=== PATIENT | male | born 1985 | race Hispanic/Latino ===

== ENCOUNTER 2019-12-12 21:52 | Emergency (ER) | payer SELFPAY ==
[2019-12-12] MEDS ORDERED: NA CHLORIDE 0.9% 1,000 ML ONE (22:57)
[2019-12-12 23:21] LABS: Absolute Lymphocytes (CBC) 2.7 K/uL (0.7-4.9); Basophils % 0.8 % (0-1.3); Hematocrit 45.9 % (39.6-49.0); Lymphocytes % 42.1 % (15.3-44.8); MPV 9.9 fL (7.6-11.3); RBC Red Blood Cell Count 5.41 M/uL (4.33-5.43)
[2019-12-12 23:38] LABS: ALT/SGPT 51 U/L (12-78); Albumin 3.9 g/dL (3.4-5.0); Alkaline Phosphatase 75 U/L (45-117); BUN Blood Urea Nitrogen 18 mg/dL (7-18); Bicarbonate 24 mmol/L (21-32); Bilirubin Direct < 0.1 mg/dL (0-0.2); Bilirubin Total 0.4 mg/dL (0.2-1.0); Glucose Level 97 mg/dL (74-106); Lipase 218 U/L (73-393); Potassium 3.8 mmol/L (3.5-5.1); Protein, Total 8.1 g/dL (6.4-8.2); Sodium Level 142 mmol/L (136-145)
[2019-12-12 23:39] LABS: AST/SGOT 24 U/L (15-37)
--- NOTE | 2019-12-13 01:10 | ER ---
Nurse's Notes [facility] Name: Benjy Polk Age: 34 yrs Sex: Male : 1985 Arrival Date: 12/12/2019 Time: 21:56 Bed 13 Private MD: Diagnosis: Gastritis, unspecified, without bleeding Presentation: 12/11 22:06 Chief complaint: Patient states: Epigastric pain for 2 hours with nausea and diarrhea. ll1 Coronavirus screen: Proceed with normal triage. Patient denies a cough. Patient denies shortness of breath or difficulty breathing. Patient denies measured and/or subjective temperature greater than 100.4F prior to today's visit. Patient denies travel on a cruise ship or to a country the [facility] currently lists as an affected area. Patient denies contact with known and/or suspected case of COVID-19. Ebola Screen: Patient denies travel to an Ebola-affected area in the 21 days before illness onset. Initial Sepsis Screen: Does the patient meet any 2 criteria? No. Patient's initial sepsis screen is negative. Does the patient have a suspected source of infection? No. Patient's initial sepsis screen is negative. Risk Assessment: Do you want to hurt yourself or someone else? Patient reports no desire to harm self or others. Onset of symptoms was December 12, 2019. 22:06 Method Of Arrival: Ambulatory ll1 22:06 Acuity: MIKE 3 ll1 Historical: - Allergies: 22:08 No Known Allergies; ll1 - PSHx: 22:08 None; ll1 - Immunization history:: Adult Immunizations up to date. - Social history:: Smoking status: Patient denies any tobacco usage or history of. Patient uses alcohol, only on a social basis. Patient/guardian denies using street drugs. Screenin:42 Abuse screen: Denies threats or abuse. Denies injuries from another. Nutritional sg screening: No deficits noted. Tuberculosis screening: No symptoms or risk factors identified. Never had TB. Fall Risk None identified. Assessment: 22:50 General: Appears in no apparent distress. well groomed, well developed, well nourished, sg Behavior is calm, cooperative, appropriate for age. Pain: Complains of pain in abdomen Quality of pain is described as aching. Neuro: Level of Consciousness is awake, alert, obeys commands, Oriented to person, place, time, Speech is normal, Facial symmetry appears normal. Cardiovascular: Capillary refill is brisk in bilateral fingers Patient's skin is warm and dry. Chest pain is denied. Respiratory: Airway is patent Respiratory effort is even, unlabored, Respiratory pattern is regular, symmetrical. GI: Bowel sounds present X 4 quads. Abd is soft X 4 quads Abdomen is tender to palpation in right lower quadrant. GI: Reports nausea. : No signs and/or symptoms were reported regarding the genitourinary system. EENT: No signs and/or symptoms were reported regarding the EENT system. Derm: Skin is pink, warm \T\ dry. Musculoskeletal: Circulation, motion, and sensation intact. Range of motion: intact in all extremities. 12/12 01:14 Reassessment: Patient appears in no apparent distress at this time. Patient and/or vc family updated on plan of care and expected duration. Pain level reassessed. Patient is alert, oriented x 3, equal unlabored respirations, skin warm/dry/pink. Patient has no concerns or needs at this time. Vital Signs: 12/11 22:06 BP 138 / 86; Pulse 88; Resp 17; Temp 98.5; Pulse Ox 96% ; Pain 5/10; ll1 12/12 00:57 BP 143 / 107; Pulse 82; Resp 18; Pulse Ox 97% on R/A; mg2 ED Course: 12/11 21:56 Patient arrived in ED. ds1 22:07 Triage completed. ll1 22:08 Arm band placed on Patient notified of wait time. ll1 22:17 Klever Duran PA is PHCP. m 22:17 Star Sanchez MD is Attending Physician. jmm 22:33 Radiology exam delayed due to lab results not completed at this time. (BUN/Creatinine). vm2 22:49 Alfonso Juarez, MICHELLE is Primary Nurse. sg 22:50 No provider procedures requiring assistance completed. Inserted saline lock: 20 gauge mg2 in left antecubital area, using aseptic technique. Blood collected. 12/12 00:17 CT Abd/Pelvis - IV Contrast Only In Process Unspecified. EDMS 00:58 Patient has correct armband on for positive identification. mg2 01:29 IV discontinued, intact, bleeding controlled, No redness/swelling at site. Pressure vc dressing applied. Administered Medications: 12/11 22:50 Drug: NS 0.9% 1000 ml Route: IV; Rate: 1 bolus; Site: left antecubital; sg 12/12 00:48 Follow up: Response: No adverse reaction; IV Status: Completed infusion; IV Intake: mg2 1000ml Intake: 00:48 IV: 1000ml; Total: 1000ml. mg2 Outcome: 01:09 Discharge ordered by . tw4 01:29 Discharged to home ambulatory. vc 01:29 Condition: good 01:29 Discharge instructions given to patient, Instructed on discharge instructions, follow up and referral plans. medication usage, Demonstrated understanding of instructions, follow-up care, medications, Prescriptions given X 2. 01:31 Patient left the ED. vc Signatures: Dispatcher [employer] EDMS Alfonso Juarez, RN RN sg Klever Duran PA PA jmm Sanford, Demi ds1 Nunu Sanders 2 Star Sanchez MD MD tw4 Doug Patel RN RN mg2 Mary Chew RN RN vc Lewis, Lynsay, RN RN ll1 Corrections: (The following items were deleted from the chart) 01:16 01:14 Reassessment: Patient appears in no apparent distress at this time. Patient vc and/or family updated on plan of care and expected duration. Pain level reassessed. Patient is alert, oriented x 3, equal unlabored respirations, skin warm/dry/pink. Patient has no concerns or needs at this time. sg
--- NOTE | 2019-12-13 01:10 | EDPHYS ---
Physician Documentation [facility] Name: Benjy Polk Age: 34 yrs Sex: Male : 1985 Arrival Date: 12/12/2019 Time: 21:56 Bed 13 Private MD: ED Physician Star Sanchez HPI: 12/11 22:30 This 34 yrs old Male presents to ER via Ambulatory with complaints of jmm Abdominal Pain. 22:30 The patient presents with abdominal pain in the epigastric area. Onset: The jmm symptoms/episode began/occurred acutely, today. The symptoms do not radiate. Associated signs and symptoms: Pertinent negatives: nausea and vomiting, diarrhea. The symptoms are described as achy, sharp. Modifying factors: The symptoms are alleviated by nothing, the symptoms are aggravated by eating. This is a 34 year old male with no chronic medical conditions that presents to the ED with complaints of epigastric pain beginning after eating nachos. Denies vomiting or diarrhea. . Historical: - Allergies: 22:08 No Known Allergies; ll1 - PSHx: 22:08 None; ll1 - Immunization history:: Adult Immunizations up to date. - Social history:: Smoking status: Patient denies any tobacco usage or history of. Patient uses alcohol, only on a social basis. Patient/guardian denies using street drugs. ROS: 22:30 Constitutional: Negative for fever, chills, and weight loss, Cardiovascular: Negative jmm for chest pain, palpitations, and edema, Respiratory: Negative for shortness of breath, cough, wheezing, and pleuritic chest pain. 22:30 Abdomen/GI: Positive for abdominal pain. 22:30 All other systems are negative. Exam: 22:30 Constitutional: This is a well developed, well nourished patient who is awake, alert, jmm and in no acute distress. Head/Face: atraumatic. Eyes: EOMI, no conjunctival erythema appreciated ENT: Moist Mucus Membranes Neck: Trachea midline, Supple Chest/axilla: Normal chest wall appearance and motion. Cardiovascular: Regular rate and rhythm. No edema appreciated Respiratory: Normal respirations, no respiratory distress appreciated 22:30 Abdomen/GI: Inspection: abdomen appears normal, Bowel sounds: normal, Palpation: soft, mild abdominal tenderness, in the epigastric area. 22:30 Back: ROM is normal. 22:30 Musculoskeletal/extremity: ROM: intact in all extremities. 22:30 Skin: Appearance: Color: normal in color. 22:30 Neuro: Orientation: is normal, Mentation: is normal, Memory: is normal. 22:30 Psych: Behavior/mood is pleasant, cooperative. Vital Signs: 22:06 BP 138 / 86; Pulse 88; Resp 17; Temp 98.5; Pulse Ox 96% ; Pain 5/10; ll1 12/12 00:57 BP 143 / 107; Pulse 82; Resp 18; Pulse Ox 97% on R/A; mg2 MDM: 12/11 22:30 Patient medically screened. [facility] 12/11 22:30 Order name: Basic Metabolic Panel; Complete Time: 23:41 [facility] 12/11 22:30 Order name: CBC with Diff; Complete Time: 23:41 [facility] 12/11 22:30 Order name: Creatinine for Radiology; Complete Time: 23:41 [facility] 12/11 22:30 Order name: Hepatic Function; Complete Time: 23:41 [facility] 12/11 22:30 Order name: Lipase; Complete Time: 23:41 [facility] 12/12 01:31 Order name: Urine Dipstick--Ancillary (enter results) [facility] 12/11 22:30 Order name: IV Saline Lock; Complete Time: 22:50 [facility] 12/11 22:30 Order name: Labs collected and sent; Complete Time: 22:50 [facility] 12/11 22:30 Order name: Urine Dipstick-Ancillary (obtain specimen); Complete Time: 00:57 [facility] 12/11 22:30 Order name: CT Abd/Pelvis - IV Contrast Only [facility] Administered Medications: 22:50 Drug: NS 0.9% 1000 ml Route: IV; Rate: 1 bolus; Site: left antecubital; 12/12 00:48 Follow up: Response: No adverse reaction; IV Status: Completed infusion; IV Intake: mg2 1000ml Disposition: 02:24 Co-signature as Attending Physician, Star Sanchez MD I agree with the assessment and tw4 plan of care. Disposition: 12/13/19 01:09 Discharged to Home. Impression: Gastritis, unspecified, without bleeding. - Condition is Stable. - Discharge Instructions: Gastritis, Adult. - Prescriptions for Protonix 40 mg Oral Tablet - take 1 tablet by ORAL route once daily; 30 tablet. Zofran 4 mg Oral Tablet - take 1 tablet by ORAL route every 12 hours As needed; 6 tablet. - Medication Reconciliation Form, Thank You Letter, Antibiotic Education, Prescription Opioid Use form. - Follow up: Private Physician; When: Upon discharge from the Emergency Department; Reason: Recheck today's complaints, Continuance of care, Re-evaluation by your physician. - Problem is new. - Symptoms have improved. Signatures: Dispatcher [employer] EDMS Alfonso Juarez RN RN sg Klever Duran PA PA jmm Wadley, Terrence, MD MD tw4 Mary Chew RN RN Danie Young RN RN ll1 Doug Patel RN mg2 Corrections: (The following items were deleted from the chart) 01:31 01:09 12/13/2019 01:09 Discharged to Home. Impression: Gastritis, unspecified, without vc bleeding. Condition is Stable. Forms are Medication Reconciliation Form, Thank You Letter, Antibiotic Education, Prescription Opioid Use. Follow up: Private Physician; When: Upon discharge from the Emergency Department; Reason: Recheck today's complaints, Continuance of care, Re-evaluation by your physician. Problem is new. Symptoms have improved. tw4
[2019-12-13 03:34] LABS: Urine Blood NEGATIVE (NEG); Urine Glucose NEGATIVE (NEG); Urine Protein NEGATIVE (NEG); Urine Specific Gravity 1.015 (1.005-1.030); Urine pH 6.5 (5.0-7.0)
--- NOTE | 2019-12-13 09:51 | RAD REPORT ---
EXAM DESCRIPTION: CT - Abdomen Pelvis W Contrast - 12/13/2019 6:37 am CLINICAL HISTORY: The patient is 34 years old and is Male; ABD PAIN TECHNIQUE: Axial computed tomography images of the abdomen and pelvis with intravenous contrast. S agittal and coronal reformatted images were created and reviewed. This CT exam was performed using one or more of the following dose reduction techniques: automated exposure control, adjustment of t he mA and/or kV according to patient size, and/or use of iterative reconstruction technique. COMPARISON: No relevant prior studies available. FINDINGS: LUNG BASES: Unremarkable. No mass. No consolidation. ABDOMEN: LIVER: The liver is enlarged and diffusely fatty. GALLBLADDER AND BILE DUCTS: The gallbladder is contracted. PANCREAS: No ductal dilation. No mass. SPLEEN: Unremarkable. ADRENALS: Unremarkable. No mass. KIDNEYS AND URETERS: Unremarkable. The kidneys enhance symmetrically. No obstructing renal or ur eteral calculus is seen. No hydronephrosis or hydroureter. No perinephric fluid or stranding. STOMACH AND BOWEL: The stomach is distended with fluid and food contents. The small bowel is nor mal in caliber. Stool is present throughout colon. There is no mucosal thickening or evidence of shayna l obstruction. PELVIS: APPENDIX: The appendix is normal in caliber without surrounding inflammation. BLADDER: The bladder is not well distended. REPRODUCTIVE: Unremarkable as visualized. ABDOMEN and PELVIS: INTRAPERITONEAL SPACE: Unremarkable. No free air. No significant fluid collection. BONES/JOINTS: Minimal degenerative change at L5-S1 is present. SOFT TISSUES: The soft tissues are normal. VASCULATURE: Unremarkable. No abdominal aortic aneurysm. LYMPH NODES: Unremarkable. No enlarged lymph nodes. IMPRESSION: No acute findings on this contrasted CT of the abdomen and pelvis to explain the patient 's symptoms. Electronically signed by: Beatriz Joshi MD 12/13/2019 12:59 AM CDT Due to temporary technical issues with the PACS/Fluency reporting system, reports are being signed by the in house radiologist as a courtesy to ensure prompt reporting. The interpreting radiologist is f ully responsible for the content of the report.
== END 2019-12-13 01:31 | disposition home or self-care (01) ==
LOC: ER 21:52
DX: K29.70 Gastritis, unspecified, without bleeding (principal)
CPT/HCPCS: 36415; 74177; 80048; 80076; 81003; 83690; 85025; 96360; 96361; 99284; J7030; Q9967